=== PATIENT | female | born 1995 | race Caucasian/White ===

== ENCOUNTER 2017-10-29 06:36 | Emergency (ER) | payer MEDICAID ==
[~2017-10-29] VITALS: Ht 157.5 cm; Wt 111.8 kg
[2017-10-29] MEDS ORDERED: PREN1CAP31 PO (06:49)
[2017-10-29] MEDS ORDERED: ACETAMINOPHEN 500 MG TABLET PO ONE (07:30)
[2017-10-29 09:32] VITALS: BP 110/68
== END 2017-10-29 10:28 | disposition home or self-care (01) ==
LOC: EMS 06:39
DX: O9A.212 Injury, poisoning and certain other consequences of external causes complicating pregnancy, second trimester (principal); S93.401A Sprain of unspecified ligament of right ankle, initial encounter; X50.1XXA Overexertion from prolonged static or awkward postures, initial encounter; Y93.01 Activity, walking, marching and hiking; Y92.89 Other specified places as the place of occurrence of the external cause; Y99.8 Other external cause status; Z3A.19 19 weeks gestation of pregnancy
CPT/HCPCS: 29515; 76801; 76817; 99285